=== PATIENT | female | born 1960 | race Caucasian/White ===

== ENCOUNTER 2021-07-11 18:28 | Emergency (ER) | payer MEDICARE, MEDICAID ==
[~2021-07-11] VITALS: Ht 167.6 cm; Wt 80.0 kg
[2021-07-11 18:36] VITALS: BP 147/97
== END 2021-07-11 22:34 | disposition left against medical advice (07) ==
LOC: ER 18:28
DX: Z53.21 Procedure and treatment not carried out due to patient leaving prior to being seen by health care provider (principal)
CPT/HCPCS: 93005

== ENCOUNTER 2021-07-12 02:44 | Emergency (ER) | payer MEDICARE, MEDICAID ==
[~2021-07-12] VITALS: Ht 162.6 cm; Wt 81.0 kg
[2021-07-12 02:52] VITALS: BP 129/85
== END 2021-07-12 03:45 | disposition home or self-care (01) ==
LOC: ER 02:44
DX: F41.9 Anxiety disorder, unspecified (principal); Z88.3 Allergy status to other anti-infective agents; Z86.59 Personal history of other mental and behavioral disorders
CPT/HCPCS: 99281